=== PATIENT | female | born 1970 | race Two or more races ===

== ENCOUNTER 2016-12-29 00:20 | Emergency (ER) | payer MEDICAID, OTHER ==
[~2016-12-29] VITALS: Ht 160 cm; Wt 64.0 kg
[2016-12-29] MEDS ORDERED: LISINOPRIL5 MG ORAL (00:27)
[2016-12-29] MEDS ORDERED: ASPIRIN81 MG ORAL (00:29)
[2016-12-29] MEDS ORDERED: FUROSEMIDE20 M1 ORAL (00:29)
[2016-12-29 01:16] LABS: APPEARANCE,URINE CLEAR; BASOPHILS % (AUTO) 0.9 % (0.0-2.0); EOSINOPHILS % (AUTO) 0.9 % (0.0-3.0); KETONES,URINE NEGATIVE (NEGATIVE); LEUKOCYTE ESTERASE ,URINE 1+ (NEGATIVE); LYMPHOCYTES % (AUTO) 18.1 % (20.0-45.0); MEAN CORPUSCULAR HEMOGLOBIN 30.5 PG (27.0-31.0); MEAN CORPUSCULAR HGB CONC 32.2 G/DL (32.0-36.0); MEAN CORPUSCULAR VOLUME 95 FL (80-99); MEAN PLATELET VOLUME 7.6 FL (6.5-10.1); MONOCYTES % (AUTO) 8.5 % (1.0-10.0); NEUTROPHILS % (AUTO) 71.7 % (45.0-75.0); NITRITE,URINE NEGATIVE (NEGATIVE); PH,URINE 6.5 (4.5-8.0); PLATELET COUNT 121 K/UL (150-450); PROTEIN,URINE 2+ (NEGATIVE); RED BLOOD COUNT 4.44 M/UL (4.20-5.40); RED CELL DISTRIBUTION WIDTH 16.3 % (11.6-14.8); UROBILINOGEN,URINE 4 MG/DL (0.0-1.0); WHITE BLOOD COUNT 7.7 K/UL (4.8-10.8)
[2016-12-29 01:27] LABS: RBC,URINE 0-2 /HPF (0 - 2)
[2016-12-29 01:28] LABS: SQUAMOUS EPITHELIAL CELL,UR OCCASIONAL /LPF (NONE/OCC); WBC,URINE 0 /HPF (0 - 2)
[2016-12-29 01:30] LABS: TROPONIN I < 0.30 ng/mL (<=0.30)
[2016-12-29 01:33] LABS: ALANINE AMINOTRANSFERASE 14 U/L (3-33); ALBUMIN/GLOBULIN RATIO 1.3 (1.0-2.7); ANION GAP 17 (5-15); ASPARTATE AMINO TRANSFERASE 25 U/L (5-40); CALCIUM 8.7 mg/dL (8.6-10.2); CARBON DIOXIDE 25 mEQ/L (20-30); CHLORIDE 99 mEQ/L (98-107); CREATININE 0.9 mg/dL (0.5-0.9); GLOMERULAR FILTRATION RATE > 60 mL/min (>60); HEMOLYSIS 15; POTASSIUM 3.6 mEQ/L (3.4-4.9); SODIUM 141 mEQ/L (135-145); TOTAL PROTEIN 6.9 g/dL (6.6-8.7)
[2016-12-29 01:43] LABS: CKMB 1.5 ng/mL (< 3.8)
--- NOTE | 2016-12-29 01:49 | Emergency Room Report ---
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 She is no longer using drugs for over 6 months now. Her ejection fraction around 10-15%. She currently has an AICD. She is currently being evaluated for heart transplant. She present tonight with chief complaint of chest pain with exertion. No fever or chills. Shortness of breath with exertion. This is unchanged before. No nausea no vomiting. No diaphoresis. She missed the last bus and was walking and developed shortness of breath and chest pain. She had to call 911. She's also has history of gallstone and is also affecting her pain. She is out of her [place]. Allergies: Uncoded Allergies: PENICILIN (Allergy, Unknown, 12/29/16) Patient History Past Medical History: see triage record, old chart reviewed, CHF Past Surgical History: other Pertinent Family History: none Social History: Reports: drug use - History Last Menstrual Period: unk Now: No : 4 Para: 2 Immunizations: other Reviewed Nursing Documentation: PMH: Agreed, PSxH: Agreed Nursing Documentation-PMH Hx Gastrointestinal Problems: Yes - gallstones Review of Systems Eye: Denies: blurred vision, eye pain ENT: Denies: ear pain, nose congestion, throat swelling Respiratory: Reports: shortness of breath, Denies: cough Cardiovascular: Reports: chest pain, Denies: palpitations Gastrointestinal: Denies: abdominal pain, diarrhea, nausea, vomiting Musculoskeletal: Denies: back pain, joint pain Skin: Denies: rash Neurological: Denies: headache, numbness Endocrine: Denies: increased thirst, increased urine Hematologic/Lymphatic: Denies: easy bruising All Other Systems: negative except mentioned in HPI Physical Exam Vital Signs Date Time Temp Pulse Resp B/P Pulse Ox O2 Delivery O2 Flow Rate FiO2 12/29/16 00:18 96.6 64 87/57 12/29/16 00:20 16 Room Air vitals unremarkable Sp02 EP Interpretation: reviewed, normal General Appearance: well appearing, no apparent distress, alert Head: normocephalic, atraumatic Eyes: bilateral eye EOMI, bilateral eye PERRL ENT: hearing grossly normal, normal pharynx Neck: full range of motion, supple, no meningismus Respiratory: chest non-tender, lungs clear, normal breath sounds Cardiovascular #1: regular rate, rhythm, no murmur Gastrointestinal: normal bowel sounds, non tender, no mass, no organomegaly, no bruit, non-distended Musculoskeletal: back normal, gait/station normal, normal range of motion Psychiatric: mood/affect normal Skin: warm/dry Medical Decision Making Diagnostic Impression: Primary Impression: Cardiomyopathy Qualified Codes: I42.7 - Cardiomyopathy due to drug and external agent Additional Impressions: Chest pain Qualified Codes: R07.9 - Chest pain, unspecified Cholelithiasis Qualified Codes: K80.20 - Calculus of gallbladder without cholecystitis without obstruction ER Course Patient presents with dyspnea. This is a chronic issue. She has a very low ejection fraction. She is euvolemic. No evidence of fluid overloaded on chest x-ray. BNP is elevated but is probably baseline. There is no evidence of ACS, PE, dissection. Blood pressures also at baseline. She has a log of her blood pressure and his been running in the 80s to low 100 systolic. Her weight is also been stable for the last week. We'll discharge home. Lab Results Impression labs show elevated BNP EKG Diagnostic Results Rate: normal Rhythm: NSR ST Segments: no acute changes Rhythm Strip Diag. Results EP Interpretation: yes Rate: 65 Rhythm: NSR, no PVC's, no ectopy Chest X-Ray Diagnostic Results EP Interpretation: Yes Findings: no consolidation, no effusion, no pneumothorax, no acute cardiopulmonary disease, other - CM Number of Views: 1 Last Vital Signs Date Time Temp Pulse Resp B/P Pulse Ox O2 Delivery O2 Flow Rate FiO2 12/29/16 00:20 64 16 Room Air 12/29/16 00:18 96.6 87/57 Status: unchanged Disposition: HOME, SELF-CARE Condition: Stable Scripts Hydrocodone Bit/Acetaminophen 5-325* (NORCO 5-325*) 1 Each Tablet 1 TAB ORAL Q6H Y for For Pain, #30 TAB 0 Refills Prov: LILIANE MTZ M.D. 12/29/16 Promethazine HCl/Codeine (Prometh-Codein 6.25-10 mg/5 ml) 5 Ml Syrup 5 ML PO QID, #120 ML Prov: LILIANE MTZ M.D. 12/29/16 Additional Instructions: Followup your DrOnelia in 2-3 days. Return if symptom worsen. No strenuous activity. LILIANE MTZ M.D. Dec 29, 2016 01:49
[2016-12-29] MEDS ORDERED: URSODIOL300 MG ORAL (01:51)
[2016-12-29] MEDS ORDERED: METOPROLOL SUCC25 MG ORAL (01:51)
[2016-12-29] MEDS ORDERED: TRIMETHOBENZAM300 MG PO (01:51)
[2016-12-29] MEDS ORDERED: SPIRONOLACTONE1 EACH ORAL (01:51)
[2016-12-29] MEDS: Norco 5mg/325mg tab ORAL ONE (01:55)
[2016-12-29 01:56] VITALS: BP 93/62
[2016-12-29] MEDS ORDERED: PROMETH-CODEIN 65 ML PO (01:58)
[2016-12-29] MEDS ORDERED: NORCO 5-325 TA1 EACH ORAL (01:58)
[2016-12-29 03:54] VITALS: BP 101/62
[2016-12-29 05:36] VITALS: BP 105/65
--- NOTE | 2016-12-29 11:01 | Diagnostic Imaging Report ---
Indications: Shortness of breath Technique: Portable AP chest Findings: Comparison: 08/10/13 Cardiac silhouette remains enlarged. Pulmonary vasculature remains within normal limits. Lungs and pleura remain clear. Pacemaker now present in left chest wall, right atrial lead tip appears high in position, right ventricular lead tip within region of right ventricle. 2 additional metallic density is now overlie the cardiac silhouette. IMPRESSION: No evidence of acute cardiopulmonary disease, unchanged Stable cardiomegaly Interval pacemaker placement, questionable position of right atrial lead
--- NOTE | 2017-01-03 12:42 | Cardiology Report ---
APPROVED REPORT EKG Measurement Heart [id number] Sinus rhythm with occasional premature ventricular complexes Right atrial enlargement Left axis deviation Nonspecific intraventricular block Abnormal ECG
== END 2016-12-29 05:38 | disposition home or self-care (01) ==
LOC: EDBD 00:20 → EMR 00:40
DX: I42.0 Dilated cardiomyopathy (principal); R07.9 Chest pain, unspecified; I51.7 Cardiomegaly; Z95.0 Presence of cardiac pacemaker; Z88.0 Allergy status to penicillin
CPT/HCPCS: 36415; 71010; 80053; 80300; 81003; 81025; 82550; 82553; 83880; 84484; 85025; 93005; 99284